=== PATIENT | female | born 1970 | race Caucasian/White ===

== ENCOUNTER 2017-07-23 13:47 | Emergency (ER) | payer SELFPAY ==
[~2017-07-23] VITALS: Ht 160 cm; Wt 49.9 kg
[2017-07-23] MEDS ORDERED: IBUPROFEN 600 MG TAB PO ONE (14:00)
[2017-07-23] MEDS ORDERED: ACETYLCYSTEINE 20%(200MG/ML) SOLN 30ML PO ONE ×2 (14:30→16:00)
[2017-07-23 15:14] LABS: CONDITION Y; Hematocrit 37.2 % (36.0-46.0); Hemoglobin 12.9 g/dL (12.2-16.2); Mean Corpuscular Hemoglobin 30.3 pg (28.0-32.0); Mean Corpuscular Hgb Conc. 34.6 g/dL (32.0-36.0); Mean Corpuscular Volume 87.7 fL (80.0-100.0); Platelet Count (auto) 301 10^3/uL (140-450); Red Cell Distribution Width 14.5 % (11.6-16.0); SUSPECT SEE PRINTOUT; White Blood Cell 12.1 10^3/uL (4.4-10.8)
[2017-07-23 15:32] LABS: Acetaminophen < 2.0 ug/mL (10-30); Salicylate < 1.7 mg/dL (2.8-20.0)
[2017-07-23 15:33] LABS: Urine Bilirubin Negative (Negative); Urine Blood Negative /uL (Negative); Urine Color Yellow (Yellow); Urine Glucose Normal (Normal); Urine Ketone Negative (Negative); Urine Mucus FEW (None Seen); Urine Nitrite Negative (Negative); Urine RBC 1 /hpf (0 - 4); Urine Squamous Epithelial Cell FEW /hpf (<5)
[2017-07-23 15:41] LABS: Albumin 2.6 g/dL (3.4-5.0); BUN/Creatinine Ratio 23.2; Calcium 8.8 mg/dL (8.5-10.1); Potassium 3.7 mmol/L (3.5-5.1)
[2017-07-23 15:43] LABS: Metamyelocytes % 0; Myelocytes % 0; Promyelocytes % 0; Reactive Lymphocytes 0
[2017-07-23 15:44] LABS: Bilirubin, Total 0.7 mg/dL (0.2-1.0); Total Protein 7.4 g/dL (6.4-8.2)
[2017-07-23 16:03] LABS: Large Platelets FEW; Tear Drop Cells FEW
[2017-07-23 16:04] LABS: Platelet Estimate Adequa
[2017-07-23] MEDS ORDERED: SODIUM CHLORIDE 0.9% 1,000 ML IV ONE (16:45)
[2017-07-23] MEDS ORDERED: cefTRIAXone 1GM/50ML D5W 50 ML IV ONE (16:45)
[2017-07-23] MEDS ORDERED: ACETYLCYSTEINE 20%(200MG/ML) SOLN 30ML PO SCH (20:00)
[2017-07-23 20:25] VITALS: BP 133/72
== END 2017-07-23 20:15 | disposition home or self-care (01) ==
LOC: EDBD 13:47 → ER 13:47
DX: S60.212A Contusion of left wrist, initial encounter (principal); N39.0 Urinary tract infection, site not specified; M54.2 Cervicalgia; F17.210 Nicotine dependence, cigarettes, uncomplicated; F12.10 Cannabis abuse, uncomplicated; F15.10 Other stimulant abuse, uncomplicated; Y08.89XA Assault by other specified means, initial encounter; Y93.89 Activity, other specified; Y99.8 Other external cause status; Y92.89 Other specified places as the place of occurrence of the external cause
CPT/HCPCS: 36415; 51702; 71020; 71250; 72125; 73110; 74176; 80053; 80307; 80329; 81001; 85007; 85027; 87040; 87086; 93005; 96365; 99285; J0696; J7030; 87077; 87088; 87186

== ENCOUNTER 2017-07-24 09:54 | Inpatient (IN) | payer SELFPAY ==
[~2017-07-24] VITALS: Ht 160 cm; Wt 55.3 kg
[2017-07-24] MEDS ORDERED: MORPHINE SULFATE 4 MG/ML SYRG IV ONE (10:30)
[2017-07-24] MEDS ORDERED: ONDANSETRON HCL 4 MG/2 ML VIAL IV ONE (10:30)
[2017-07-24] MEDS ORDERED: SODIUM CHLORIDE 0.9% 1,000 ML IV ONE (10:30)
[2017-07-24 11:01] LABS: CONDITION Y; Hematocrit 33.4 % (36.0-46.0); Hemoglobin 11.3 g/dL (12.2-16.2); Mean Corpuscular Hemoglobin 30.1 pg (28.0-32.0); Mean Corpuscular Hgb Conc. 33.8 g/dL (32.0-36.0); Mean Corpuscular Volume 89.2 fL (80.0-100.0); Mean Platelet Volume 8.5 fL (7.4-10.4); Platelet Count (auto) 388 10^3/uL (140-450); Red Cell Distribution Width 14.9 % (11.6-16.0); SUSPECT SEE PRINTOUT; White Blood Cell 9.1 10^3/uL (4.4-10.8)
[2017-07-24 11:05] LABS: Metamyelocytes % 0; Myelocytes % 0; Promyelocytes % 0; Reactive Lymphocytes 0
[2017-07-24 11:06] LABS: Urine Bilirubin Negative (Negative); Urine Blood TRACE /uL (Negative); Urine Color Yellow (Yellow); Urine Glucose 1+ mg/dL (Normal); Urine Ketone 1+ (Negative); Urine Mucus FEW (None Seen); Urine Nitrite Negative (Negative); Urine RBC 2 /hpf (0 - 4); Urine Squamous Epithelial Cell FEW /hpf (<5); Urine Urobilinogen Normal (Negative)
[2017-07-24] MEDS: ACETYLCYSTEINE 20%(200MG/ML) SOLN 30ML PO SCH ×4 (11:22→23:15)
[2017-07-24 11:41] LABS: Hypersegmented Neutrophils Present; Platelet Estimate Adequate; RBC Morphology Normal
[2017-07-24 12:35] LABS: Albumin 2.3 g/dL (3.4-5.0); Calcium 8.6 mg/dL (8.5-10.1); Potassium 3.9 mmol/L (3.5-5.1)
[2017-07-24 12:38] LABS: BUN/Creatinine Ratio 54.3
[2017-07-24 12:40] LABS: Bilirubin, Total 0.5 mg/dL (0.2-1.0); Total Protein 6.8 g/dL (6.4-8.2)
[2017-07-24] MEDS ORDERED: TEMAZEPAM 15 MG CAP PO PRN (13:45)
[2017-07-24] MEDS ORDERED: cefTRIAXone 1GM/50ML D5W 50 ML IV ONE (13:45)
[2017-07-24] MEDS ORDERED: HYDROcodone-ACET 5/325MG TAB PO PRN (13:45)
[2017-07-24] MEDS ORDERED: ONDANSETRON HCL 4 MG/2 ML VIAL IV PRN (13:45)
[2017-07-24] MEDS ORDERED: DOCUSATE SOD 100 MG CAP PO PRN (13:45)
[2017-07-24] MEDS ORDERED: ACETAMINOPHEN 325 MG TAB PO PRN (13:45)
[2017-07-24 13:52] LABS: Salicylate < 1.7 mg/dL (2.8-20.0)
[2017-07-24 13:59] LABS: Acetaminophen < 2.0 ug/mL (10-30)
[2017-07-24] MEDS: SODIUM CHLOR 0.9% PF (SALINE LOCK) 10ML VIAL IV SCH ×2 (13:59→22:55)
[2017-07-24] MEDS: MORPHINE SULF INJ 2 MG/ML SYRINGE 1ML IV PRN ×2 (15:33→20:15)
[2017-07-24] MEDS ORDERED: BOOST PLUS 8 ounce PO SCH (18:00)
[2017-07-24 20:15] VITALS: BP 139/88
[2017-07-24 22:00] VITALS: BP 139/88
[2017-07-24] MEDS ORDERED: LORazepam 0.5 MG TAB PO PRN (22:15)
[2017-07-24 22:50] VITALS: BP 133/73
[2017-07-25] MEDS ORDERED: CALCIUM CHLOR(10%) 100MG/ML 10ML SYRINGE IV ONE (04:17)
[2017-07-25] MEDS ORDERED: EPINEPHrine HCL 1 MG/10 ML SYRG IV ONE (04:17)
[2017-07-25] MEDS ORDERED: SODIUM BICARBONATE 8.4% INJ 50ML SYRINGE IV ONE (04:17)
[2017-07-25] MEDS ORDERED: cefTRIAXone 1GM/50ML D5W 50 ML IV SCH (09:00)
[2017-07-25] MEDS ORDERED: MULTIPLE VITAMIN TAB PO SCH (10:00)
== END 2017-07-25 04:18 | disposition expired | DRG 918 ==
LOC: ER 09:54 → OVERFLOW 09:55 → WEST WING 18:25
PROVIDERS: ADMIT Internal Medicine; ATTEND Internal Medicine
DX: T39.1X1A Poisoning by 4-Aminophenol derivatives, accidental (unintentional), initial encounter (principal); E44.0 Moderate protein-calorie malnutrition; D63.8 Anemia in other chronic diseases classified elsewhere; F15.10 Other stimulant abuse, uncomplicated; F17.210 Nicotine dependence, cigarettes, uncomplicated; M47.812 Spondylosis without myelopathy or radiculopathy, cervical region; M54.9 Dorsalgia, unspecified; M48.02 Spinal stenosis, cervical region; R33.9 Retention of urine, unspecified; Y92.89 Other specified places as the place of occurrence of the external cause; Z87.442 Personal history of urinary calculi; Z68.21 Body mass index [BMI] 21.0-21.9, adult
CPT/HCPCS: 36415; 51702; 70450; 80053; 80307; 80320; 80329; 81001; 82962; 85007; 85027; 87086; 92950; 93005; 94761; 96361; 96365; 96375; J0696; J2405